=== PATIENT | male | born 1945 | race Caucasian/White ===

== ENCOUNTER 2016-07-13 13:23 | Day surgery (SDC) | payer OTHER, MEDICARE ==
[~2016-07-13 13:23] MED LIST: ASAB PO; BREO ELLIPTA 21 EACH INH; CRESTOR10 PO; DALIRESP500 MCG PO; GLUCOPHAGE1000 MG PO; INCRUSE ELLI62.5 MCG INH; L40 PO; NORV5 PO; PROAIR HFA INH; VASOTEC20 MG PO
[2016-07-13 14:01] LABS: HEMATOCRIT 42.7 % (40.0-51.0); HEMOGLOBIN 14.2 g/dL (13.6-17.8)
[2016-07-13 14:22] LABS: BUN (BLOOD UREA NITROGEN) 17 MG/DL (6-23); CALCIUM, SERUM 9.3 MG/DL (8.5-10.4); CHLORIDE, SERUM 107 MMOL/L (96-112); CO2 (CARBON DIOXIDE) 28 MMOL/L (24-34); CREATININE 0.74 MG/DL (0.70-1.30); GFR AFRICAN AMERICAN 109 ML/MIN (>=60); GFR NON AFRICAN AMERICAN 94 ML/MIN (>=60); GLUCOSE, SERUM 126 MG/DL (60-99); POTASSIUM, SERUM 3.9 MMOL/L (3.5-5.3); SODIUM, SERUM 143 MMOL/L (135-148)
[2016-08-20] MEDS ORDERED: INCRUSE ELLI62.5 MCG INH (11:19)
[2016-08-20] MEDS ORDERED: CRESTOR10 PO (11:20)
== END 2016-07-13 23:59 | disposition home or self-care (01) ==
LOC: DMU 13:23
PROVIDERS: Anesthesiology
DX: R59.0 Localized enlarged lymph nodes (principal); I10 Essential (primary) hypertension; J43.9 Emphysema, unspecified; E11.9 Type 2 diabetes mellitus without complications; E78.00 Pure hypercholesterolemia, unspecified; N40.0 Benign prostatic hyperplasia without lower urinary tract symptoms; E78.2 Mixed hyperlipidemia; Z98.890 Other specified postprocedural states; Z87.891 Personal history of nicotine dependence; Z82.5 Family history of asthma and other chronic lower respiratory diseases; Z83.3 Family history of diabetes mellitus; Z82.3 Family history of stroke; Z82.49 Family history of ischemic heart disease and other diseases of the circulatory system; Z79.82 Long term (current) use of aspirin; Z79.899 Other long term (current) drug therapy; Z53.9 Procedure and treatment not carried out, unspecified reason
CPT/HCPCS: 80048; 85014; 85018; 93005; A9270-GY; J2250; J3010

== ENCOUNTER 2016-08-26 06:29 | Day surgery (SDC) | payer OTHER, MEDICARE ==
--- NOTE | ~2016-08-26 | OP ---
Record Of Operation [facility] [address] [facility] [place]. [address] NAME: SHARONA ISAAC : 49 STATUS : REG [facility] PAT#: [id number] AGE: 71 ADM/REG DATE : 08/26/16 MR#: [id number] REPORT SERV DATE: 08/26/16 DICTATED BY: JB LONDON JR. DATE: 08/26/16 REPORT STATUS : Draft TRANSCRIBED BY: MODYulia DATE: 08/26/16 DATE OF PROCEDURE: 08/26/2016 PREOPERATIVE DIAGNOSES: Emphysema, mediastinal lymphadenopathy, hypertension, and home oxygen. POSTOPERATIVE DIAGNOSES: No evidence for sarcoidosis or carcinoma. Rule out possible low- grade lymphoma. Final pathology pending. NAME OF OPERATION: Diagnostic and therapeutic bronchoscopy, endobronchial ultrasound with multiple fine-needle aspirations, oracio stations 4R, 4L, and 7. SURGEON: Jb London M.D. ANESTHESIA: General endotracheal. FINDINGS: The patient was noted to have normal endobronchial anatomy. There are no endobronchial lesions. Mucous secretions were evacuated. His airways actually looked better than expected. On endobronchial ultrasound, he had an extremely large pathologic appearing subcarinal lymph node with more normal size and slightly abnormal lymph nodes in the paratracheal regions. All lymph nodes had the same consistency under ultrasound. All lymph nodes had more than usual vascularity associated with them. On touch preps, there was no evidence of carcinoma. Low-grade lymphoma could not be ruled out. Additional material was sent for cell block as well as flow cytometry. Final pathology is pending. These appeared to be more reactive lymph nodes with the subcarinal lymph node being the most abnormal. DETAILS OF OPERATION: After adequate general anesthesia, the patient was intubated with an LMA. Diagnostic and therapeutic bronchoscopy was performed. There were no endobronchial lesions. Mucous secretions were evacuated. The above findings were noted. Next, an endobronchial ultrasound was performed noting the extremely pathologic appearing subcarinal lymph node. It had a very hypervascular architecture to it. Nodes in the right and left paratracheal area were similar, but this were much smaller. There was even less adenopathy in the hilar regions. Multiple fine-needle aspirations of all three nodes demonstrated similar findings. There were benign lymphocytes with no evidence for sarcoidosis or carcinoma. Low-grade lymphoma could not be ruled out. Additional material from all three stations were sent for flow cytometry. Final pathology is pending. Adequate hemostasis was then obtained. The procedure was terminated at this point. The patient tolerated the procedure well and taken back to recovery room in stable condition. SAI/STARR Jb London Jr., M.D. Record Of Operation [address] [address] NAME: SHARONA ISAAC : 49 STATUS : REG [facility] PAT#: [id number] AGE: 71 ADM/REG DATE : 08/26/16 MR#: [id number] REPORT SERV DATE: 08/26/16 DICTATED BY: JB LONDON JR. DATE: 08/26/16 REPORT STATUS : Draft TRANSCRIBED BY: STARR DATE: 08/26/16 / [id number] CC: Preston Mcdonald Jr., M.D.
[2016-08-26 06:49] LABS: HEMATOCRIT 45.3 % (40.0-51.0); HEMOGLOBIN 15.1 g/dL (13.6-17.8)
[2016-08-26 06:57] LABS: BUN (BLOOD UREA NITROGEN) 18 MG/DL (6-23); CALCIUM, SERUM 9.7 MG/DL (8.5-10.4); CHLORIDE, SERUM 108 MMOL/L (96-112); CO2 (CARBON DIOXIDE) 30 MMOL/L (24-34); CREATININE 0.95 MG/DL (0.70-1.30); GFR AFRICAN AMERICAN 94 ML/MIN (>=60); GFR NON AFRICAN AMERICAN 81 ML/MIN (>=60); POTASSIUM, SERUM 3.8 MMOL/L (3.5-5.3); SODIUM, SERUM 142 MMOL/L (135-148)
[2016-08-26 06:58] LABS: GLUCOSE, SERUM 166 MG/DL (60-99)
== END 2016-08-26 23:59 | disposition home or self-care (01) ==
LOC: DMU 06:29
PROVIDERS: Anesthesiology; Thoracic Surgery (Cardiothoracic Vascular Surgery)
PROC: 07974ZX Drainage of Thorax Lymphatic, Percutaneous Endoscopic Approach, Diagnostic (ICD-10-PCS; principal; 2016-08-26 08:00)
PROC: BB4CZZZ Ultrasonography of Mediastinum (ICD-10-PCS; 2016-08-26 08:00)
DX: R59.0 Localized enlarged lymph nodes (principal); J98.2 Interstitial emphysema; E78.00 Pure hypercholesterolemia, unspecified; J44.9 Chronic obstructive pulmonary disease, unspecified; N40.0 Benign prostatic hyperplasia without lower urinary tract symptoms; I10 Essential (primary) hypertension; E11.9 Type 2 diabetes mellitus without complications
CPT/HCPCS: 80048; 82962; 85014; 85018; 88172; 88173; 88177; 88305; 93005; A9270-GY; C1725; J2405; J3010